=== PATIENT | male | born 1995 | race Caucasian/White ===

== ENCOUNTER 2017-05-23 12:42 | Emergency (ER) | payer OTHER ==
[2017-05-23 12:53] VITALS: BP 146/103; PULSE 74; RESP 18; TEMP 98.4; O2SAT 95
--- NOTE | 2017-05-23 13:13 | EDPHY ---
H & P Time Seen by Provider: 05/23/17 13:12 HPI/ROS: CHIEF COMPLAINT: Right knee pain HISTORY OF PRESENT ILLNESS: 21 y/o male presents with right knee pain secondary to an accidental mechanical fall last night. He had been drinking alcohol and jumped off a roof about 6-7 ft high. After his fall, he felt like his kneecap slid to the right then slid back into place. Initially, he did not have pain, but pain began after the patella moved back into place and increased throughout the night. Moderate pain with weightbearing today. He denies any other injuries. He has no further complaints. ROS: No numbness, weakness, excessive bleeding, syncopal episode, other injury. Past Medical/Surgical History: Denies. Social History: Student at [employer]. Lives in [place]. Single. Smoking Status: Current some day smoker Physical Exam: Alert and pleasant Extremities: Right knee: normal inspection, tenderness over lateral joint line. Pain with anterior drawer sign. No joint effusion. Skin: Warm and dry. No lacerations or abrasions. Neuro: Motor and sensory intact Vascular: Capillary refill brisk distally Constitutional: Initial Vital Signs Temperature (C) 36.9 C 05/23/17 12:49 Heart Rate 74 05/23/17 12:49 Respiratory Rate 18 05/23/17 12:49 Blood Pressure 146/103 H 05/23/17 12:49 O2 Sat (%) 95 05/23/17 12:49 O2 Delivery Mode Room Air Allergies/Adverse Reactions: No Known Allergies Allergy (Unverified 05/23/17 12:48) Home Medications: Medication Instructions Recorded NK [No Known Home Meds] 05/23/17 Medical Decision Making - Diagnostics Imaging Results: Imaging Impressions Knee X-Ray 05/23/17 12:54 Impression: No evidence for acute osseous abnormality right knee. Imaging: I viewed and interpreted images myself ED Course/Re-evaluation: 21 y/o male presents with right knee pain secondary to a fall from about 6-7ft yesterday evening. Exam reveals tenderness over the medial joint line and pain with anterior drawer sign. No joint effusion. Plan for x-ray to r/o fracture. X-ray of right knee shows no acute osseous abnormalities. Results d/w patient. Exam consistent with ligamentous injury e.g. MCL or ACL strain or tear. Possibly patellar dislocation. Plan to d/c home in good condition with referral to orthopedic designer loss control representative. He will receive a knee immobilizer and crutches. Return precautions discussed. He is comfortable with this plan. Departure - Departure Disposition: Home, Routine, Self-Care Clinical Impression: Injury of ligament of right knee Qualifiers: Encounter type: initial encounter Qualified Code(s): S89.91XA - Unspecified injury of right lower leg, initial encounter Condition: Good Instructions: ACL Injury (ED), Knee Pain (ED), Knee Immobilizer (ED) Additional Instructions: 1. Call the orthopedic surgeon tomorrow for a follow up appointment. 2. Wear your knee immobilizer and use crutches as directed until your evaluation by an orthopedic designer. 3. Rest, ice, elevation. Use ibuprofen and Tylenol as directed below as needed for pain. 4. Return to the emergency department for worsening pain, swelling, numbness, weakness or other concerns. Adult Pain & Fever Control: We recommend Acetaminophen (Tylenol) and Ibuprofen (Motrin,Advil) for pain and fever control. When fever is high or pain severe, both drugs can be used at the same time, but at different intervals. Please note the time differences. Your dose is: Acetaminophen 650mg every 4 to 6 hours Ibuprofen 600mg every 6-8 hours with food Note: do not take Acetaminophen with Hydrocodone (Vicodin, Lortab) or Oxycodone (Percocet). These medications also contain Acetaminophen. No more than 3000mg of Acetaminophen should be taken in 24 hours (for an adult). Referrals: Torres Cisse MD [Medical Doctor] - As per Instructions Report Scribed for: Natividad Maldonado Report Scribed by: Meghann Moreno Date of Report: 05/23/17 Time of Report: 13:16 Physician Review and Approval Statement: 05/23/17 13:32 Portions of this note were transcribed by a medical record clerk. I personally performed a history, physical exam, medical decision making, and confirmed accuracy of information the transcribed note.
== END 2017-05-23 13:36 | disposition home or self-care (01) ==
DX: S89.91XA Unspecified injury of right lower leg, initial encounter (principal); F17.200 Nicotine dependence, unspecified, uncomplicated; W13.2XXA Fall from, out of or through roof, initial encounter; Y99.8 Other external cause status; Y93.39 Activity, other involving climbing, rappelling and jumping off
CPT/HCPCS: L1830

== ENCOUNTER 2017-07-08 02:27 | Emergency (ER) | payer SELFPAY ==
--- NOTE | 2017-07-08 02:34 | EDPHY ---
H & P Stated Complaint: "Popped out R knee cap again" Time Seen by Provider: 07/08/17 02:34 HPI/ROS: HPI CHIEF COMPLAINT: Right knee pain HISTORY OF PRESENT ILLNESS: Patient very pleasant 22-year-old male, he states approximately 6 weeks ago he tore the meniscus of his right knee. He followed up with an orthopedic surgeon and had an MRI. He did not require any surgery however he was in a knee brace for 6 weeks. On Wednesday he came out of his knee brace. This evening he was putting on his shoe and brought his right leg up and felt a pop with pain to the medial aspect of his right knee. States he has a great deal of difficulty fully extending his knee at this time. Complains of 6/10 pain. Denies direct trauma to his knee. He is unsure what caused his pain however he has pain located on the medial aspect joint line of his right knee. No significant swelling. Came to the emergency room for evaluation. This happened approximately 30 min ago or prior to arrival. Past Medical History: No significant medical history Past Surgical History: No significant surgical history Social History: Denies drugs alcohol tobacco. [employer] student. Family History: Noncontributory ROS REVIEW OF SYSTEMS: A comprehensive 10 point review of systems is otherwise negative aside from elements mentioned in the history of present illness. Exam Constitutional appears well nontoxic triage nursing summary reviewed, vital signs reviewed, awake/alert. Eyes normal conjunctivae and sclera, EOMI, PERRLA. HENT normal inspection, atraumatic, moist mucus membranes, no epistaxis, neck supple/ no meningismus, no raccoon eyes. Respiratory clear to auscultation bilaterally, normal breath sounds, no respiratory distress, no wheezing. Cardiovascular rate normal, regular rhythm, no murmur, no edema, distal pulses normal. Gastrointestinal soft, non-tender, no rebound, no guarding, normal bowel sounds, no distension, no pulsatile mass. Genitourinary no CVA tenderness. Musculoskeletal right lower extremity: Neurovascularly intact with good distal pulse good cap refill. Warm extremity. As for the right knee. The patella appears to be in appropriate position. I was able to range his knee with full flexion and extension however he has pain with full extension. The patella appears to be in appropriate position. Patella tendon intact. He has some mild tenderness to palpation over the medial joint line. No significant swelling on exam. no midline vertebral tenderness, full range of motion, no calf swelling, no tenderness of extremities, no meningismus, good pulses, neurovascularly intact. Skin pink, warm, & dry, no rash, skin atraumatic. Neurologic awake, alert and oriented x 3, AAOx3, moves all 4 extremities equally, motor intact, sensory intact, CN II-XII intact, normal cerebellar, normal vision, normal speech. Psychiatric normal mood/affect. Heme/Lymph/Immune no lymphadenopathy. Differential Diagnosis: Includes but is not limited to in a particular order musculoskeletal strain, patellar dislocation relocation, tibial plateau fracture , meniscal injury, worsening meniscal injury, ligamentous injury, mcl tear. Medical Decision Making: Plan for this patient x-ray of the right knee, ibuprofen 800 mg, most likely placed in knee immobilizer and refer back to Orthopedics. Re-evaluation: X-ray the right knee reviewed. No evidence of malalignment or fracture. Patella appears to be in appropriate position. Recommend knee brace, ice, anti-inflammatory pain medicine. Her refer back to Orthopedics. It is possible he has further meniscal injury in tear or ligamentous injury. I explained this to him. Return precautions discussed he understands return emergency room develops worsening pain, swelling questions or concerns. Follow up with Orthopedics. Source: Patient - Personal History Current Tetanus Diphtheria and Acellular Pertussis (TDAP): Yes - Medical/Surgical History Hx Asthma: No Hx Chronic Respiratory Disease: No Hx Diabetes: No Hx Cardiac Disease: No Hx Renal Disease: No Hx Cirrhosis: No Hx Alcoholism: No Hx HIV/AIDS: No Hx Splenectomy or Spleen Trauma: No Other PMH: denies - Social History Smoking Status: Current some day smoker Constitutional: Initial Vital Signs Temperature (C) 37.6 C 07/08/17 02:31 Heart Rate 74 07/08/17 02:31 Respiratory Rate 18 07/08/17 02:31 Blood Pressure 150/73 H 07/08/17 02:31 O2 Sat (%) 95 07/08/17 02:31 O2 Delivery Mode Room Air Allergies/Adverse Reactions: No Known Allergies Allergy (Unverified 07/08/17 02:27) Home Medications: Medication Instructions Recorded Ibuprofen [Motrin (*)] 800 mg PO Q6-8PRN #14 tab 07/08/17 Medical Decision Making - Data Points Medications Given: Discontinued Medications Ibuprofen (Motrin) 800 mg PO EDNOW ONE Stop: 07/08/17 02:41 Last Admin: 07/08/17 02:47 Dose: 800 mg Departure - Departure Disposition: Home, Routine, Self-Care Clinical Impression: Knee strain Qualifiers: Encounter type: initial encounter Laterality: right Qualified Code(s): S86.911A - Strain of unspecified muscle(s) and tendon(s) at lower leg level, right leg, initial encounter Condition: Good Instructions: Knee Sprain (ED) Additional Instructions: 1. Recommend anti-inflammatory pain medicine like Tylenol Motrin. 2. Recommend ice and rest. 3. Brace for comfort and stabilization 4. Follow up with your orthopedic surgeon. Referrals: NONE *PRIMARY CARE P,. [Primary Care Provider] - As per Instructions Jose Manuel Martini MD [Medical Doctor] - As per Instructions Prescriptions: Ibuprofen [Motrin (*)] 800 mg PO Q6-8PRN #14 tab
[2017-07-08 02:40] VITALS: BP 150/73
[2017-07-08] MEDS ORDERED: IBUPROFEN 800 MG TAB PO ONE (02:40)
== END 2017-07-08 03:25 | disposition home or self-care (01) ==
DX: S86.911A Strain of unspecified muscle(s) and tendon(s) at lower leg level, right leg, initial encounter (principal); F17.200 Nicotine dependence, unspecified, uncomplicated; X50.9XXA Other and unspecified overexertion or strenuous movements or postures, initial encounter; Y99.8 Other external cause status; Y93.89 Activity, other specified
CPT/HCPCS: L1830